=== PATIENT | male | born 1935 | race Caucasian/White ===

== ENCOUNTER 2016-09-11 04:50 | Emergency (ER) | payer OTHER ==
[~2016-09-11 04:50] MED LIST: ATENOLOL PO; CARBIDOPA/LEVO1 TAB PO; MIRAPEX 0.125MG PO
[2016-09-11] MEDS ORDERED: CARBIDOPA AND L1 OD1 PO (04:57)
== END 2016-09-11 05:57 | disposition home or self-care (01) ==
LOC: ED 04:50
DX: S22.32XA Fracture of one rib, left side, initial encounter for closed fracture (principal); S01.01XA Laceration without foreign body of scalp, initial encounter; W06.XXXA Fall from bed, initial encounter; Y92.013 Bedroom of single-family (private) house as the place of occurrence of the external cause

== ENCOUNTER 2016-09-17 14:07 | Emergency (ER) | payer OTHER ==
[~2016-09-17 14:07] MED LIST changes: +CARBIDOPA AND L1 OD1 PO
[2016-09-17 14:30] VITALS: BP 135/86
== END 2016-09-17 14:30 | disposition home or self-care (01) ==
LOC: ED 14:07
DX: S01.01XD Laceration without foreign body of scalp, subsequent encounter (principal)

== ENCOUNTER 2017-03-05 14:53 | Emergency (ER) | payer MEDICARE ==
[~2017-03-05] VITALS: Ht 175.3 cm; Wt 86.4 kg
[2017-03-05] MEDS ORDERED: RASAGILINE MESYL1 MG PO (15:04)
[2017-03-05] MEDS ORDERED: ATENOLOL50 MG PO (15:04)
[2017-03-05] MEDS ORDERED: STALEVO 100 251 TAB PO (15:05)
[2017-03-05] MEDS ORDERED: PRAMIPEXOLE DI1.5 MG PO (15:05)
[2017-03-05] MEDS ORDERED: HCTZ 25MG25 MG PO (15:06)
[2017-03-05 16:58] VITALS: BP 182/89
== END 2017-03-05 16:59 | disposition home or self-care (01) ==
LOC: ED 14:53
DX: K59.00 Constipation, unspecified (principal); G20 Parkinson's disease; I10 Essential (primary) hypertension; G62.9 Polyneuropathy, unspecified; Z87.891 Personal history of nicotine dependence

== ENCOUNTER 2018-04-22 07:17 | Emergency (ER) | payer MEDICARE ==
[~2018-04-22] VITALS: Wt 86.4 kg
[~2018-04-22 07:17] MED LIST changes: +ATENOLOL50 MG PO; +HCTZ 25MG25 MG PO; +PRAMIPEXOLE DI1.5 MG PO; +RASAGILINE MESYL1 MG PO; +STALEVO 100 251 TAB PO
[2018-04-22 11:03] VITALS: BP 151/78
== END 2018-04-22 11:04 | disposition home or self-care (01) ==
LOC: ED 07:17
DX: K59.00 Constipation, unspecified (principal); I10 Essential (primary) hypertension; G20 Parkinson's disease; Z87.891 Personal history of nicotine dependence; Z79.899 Other long term (current) drug therapy

== ENCOUNTER → 2018-08-27 | Outpatient (CLI) | payer MEDICARE | LOC: RAD 12:00 | DX: I67.82 Cerebral ischemia (principal); S09.90XA Unspecified injury of head, initial encounter; W19.XXXA Unspecified fall, initial encounter ==

== ENCOUNTER → 2018-09-20 | Outpatient (CLI) | payer MEDICARE | LOC: RAD 13:20 | DX: G31.9 Degenerative disease of nervous system, unspecified (principal); I67.82 Cerebral ischemia; S09.90XD Unspecified injury of head, subsequent encounter; R29.6 Repeated falls ==